=== PATIENT | female | born 1980 | race Caucasian/White ===

== ENCOUNTER 2024-01-26 16:23 | Inpatient (IN) | payer OTHER, SELFPAY ==
[~2024-01-26] VITALS: Ht 162.6 cm; Wt 71.0 kg
[2024-01-26 17:43] LABS: BASO # 0.1 10^3/uL (0.0-0.2); BASO % 0.8 % (0.0-1.0); EOS # 0.1 10^3/uL (0.0-0.5); EOS % 0.3 % (0.0-3.0); HEMOGLOBIN 12.8 g/dl (12.0-15.5); LYMPH # 2.7 10^3/uL (1.5-5.0); LYMPH % 18.5 % (24.0-44.0); MEAN CORPUSCULAR HEMOGLOBIN 28.4 pg (27.0-33.0); MEAN CORPUSCULAR VOLUME 88.9 fl (80.0-96.0); MONO % 6.8 % (2.0-8.0); NEUTROPHILS # 10.6 10^3/uL (1.5-8.5); NEUTROPHILS % 73.4 % (36.0-66.0); PLATELET COUNT, AUTOMATED 286 10^3/uL (150-450); WHITE BLOOD COUNT 14.4 10^3/uL (4.0-10.0)
[2024-01-26 17:53] LABS: ERYTHROCYTE SEDIMENTATION RATE 46 mm/hr (0-20)
[2024-01-26 18:09] LABS: C REACTIVE PROTEIN QUANTITATIV < 0.40 MG/DL (<1.0)
[2024-01-26 18:10] LABS: BLOOD UREA NITROGEN 10 MG/DL (9-23); CALCIUM LEVEL 9.4 MG/DL (8.5-10.1); CARBON DIOXIDE LEVEL 26 MMOL/L (20-31); CHLORIDE LEVEL 107 MMOL/L (98-107); CREATININE FOR GFR 0.61 MG/DL (0.55-1.30); GLOMERULAR FILTRATION RATE > 60.0 (>58); GLUCOSE, FASTING 95 MG/DL (60-100); POTASSIUM SERUM 3.5 MMOL/L (3.5-5.1); SODIUM LEVEL 139 MMOL/L (136-145)
[2024-01-26 18:18] LABS: HCG, SERUM QUALITATIVE NEGATIVE (NEGATIVE)
[2024-01-26] MEDS: METOCLOPRAMIDE INJ 10MG/2ML VIAL IV ONE (19:01)
[2024-01-26] MEDS: KETOROLAC 30 MG/ML 1ML VIAL IV ONE (19:01)
[2024-01-26] MEDS: diphenhydrAMINE 50MG/ML VIAL IV ONE (19:01)
[2024-01-26] MEDS: NS 1,000 ML IV ONE ×2 (19:01→23:05)
[2024-01-26 20:40] LABS: BARBITURATES URINE NEGATIVE (NEGATIVE); BENZODIAZEPINES URINE NEGATIVE (NEGATIVE); CANNABINOIDS URINE NEGATIVE (NEGATIVE); COCAINE METABOLITE URINE NEGATIVE (NEGATIVE); METHADONE URINE NEGATIVE (NEGATIVE); OPIATES URINE NEGATIVE (NEGATIVE); PHENCYCLIDINE URINE NEGATIVE (NEGATIVE)
[2024-01-26 20:46] LABS: AMPHETAMINES LEVEL URINE POSITIVE (NEGATIVE)
[2024-01-26 21:07] LABS: ETHYL ALCOHOL (ETHANOL) 0.006 % (0.000-0.010)
[2024-01-26 21:09] LABS: SALICYLATE LEVEL < 3.0 MG/DL (<30)
[2024-01-26 21:21] LABS: INR 1.14; PARTIAL THROMBOPLASTIN TIME 27.5 SECONDS (24.8-34.2); PROTHROMBIN TIME 14.3 SECONDS (12.5-14.5)
[2024-01-26] MEDS: dexAMETHasone 20MG/5ML VIAL IV STA (22:28)
[2024-01-26] MEDS ORDERED: MOM 30ML SUSPENSION UDC PO PRN (22:40)
[2024-01-26] MEDS ORDERED: VANCOMYCIN HCL IV ONE (22:40)
[2024-01-26] MEDS ORDERED: ACETAMINOPHEN TAB 650MG DOSE (2X325MG) PO PRN (22:40)
[2024-01-26] MEDS ORDERED: FLUID PLACE HOLDER IV ONE (22:40)
[2024-01-26] MEDS: cefTRIAXone SOD 2 GM in D5W MINI-BAG PLUS 50 ML IV SCH (23:02)
[2024-01-26 23:18] LABS: CSF TUBE# TP TUBE 2; TOTAL PROTEIN,CSF 99.7 MG/DL (15-45)
[2024-01-26 23:19] LABS: COLOR, CSF COLORLESS (COLORLESS); CSF TUBE# CELL CNT TUBE 1
[2024-01-26 23:20] LABS: APPEARANCE, CSF CLEAR (CLEAR)
[2024-01-26 23:21] LABS: CSF TUBE# GLU TUBE 2
[2024-01-27 00:15] LABS: PROCALCITONIN <0.04 ng/ml
[2024-01-27] MEDS ORDERED: VANCOMYCIN HCL 750 MG, VIAL MATE ADAPTER 1 EACH in D5W 250 ML IV ONE ×2 (01:00)
[2024-01-27 01:22] VITALS: BP 160/93; TEMP 98.1; O2SAT 100
[2024-01-27] MEDS: NS IV SCH (01:53)
[2024-01-27] MEDS: ACYCLOVIR IV SCH (01:53)
[2024-01-27] MEDS ORDERED: HOME MED LIST COMPLETE! XX SCH (02:15)
[2024-01-27 04:28] VITALS: BP 134/77; TEMP 97.8; O2SAT 98
[2024-01-27] MEDS ORDERED: dexAMETHasone 20MG/5ML VIAL IV SCH (05:00)
[2024-01-27 08:00] VITALS: BP 132/78; TEMP 97.9; O2SAT 99
[2024-01-27] MEDS ORDERED: VALT1TAB PO (08:26)
[2024-01-27] MEDS: ENOXAPARIN 40MG/0.4ML SYRINGE (J1650 PER 10MG) SC SCH (08:36)
[2024-01-27 12:00] VITALS: BP 132/78; TEMP 98.1; O2SAT 100
== END 2024-01-27 12:32 | disposition left against medical advice (07) | DRG 51 ==
LOC: M ED 16:23 → M ED INP 22:36 → M MSPAV 01-27 01:22
PROVIDERS: ADMIT Internal Medicine; ATTEND Internal Medicine
PROC: 009U3ZX Drainage of Spinal Canal, Percutaneous Approach, Diagnostic (ICD-10-PCS; principal; 2024-01-26)
DX: B00.3 Herpesviral meningitis (principal); F32.A Depression, unspecified; Z11.52 Encounter for screening for COVID-19; G43.909 Migraine, unspecified, not intractable, without status migrainosus; B18.2 Chronic viral hepatitis C

== ENCOUNTER → 2024-02-17 | Outpatient (CLI) | payer OTHER ==
[~2024-02-17] MED LIST: VALT1TAB PO
[2024-02-17 15:21] LABS: BASO # 0.1 10^3/uL (0.0-0.2); EOS # 0.9 10^3/uL (0.0-0.5); EOS % 6.6 % (0.0-3.0); HEMATOCRIT 38.7 % (36.0-47.0); HEMOGLOBIN 12.3 g/dl (12.0-15.5); LYMPH # 4.3 10^3/uL (1.5-5.0); LYMPH % 32.5 % (24.0-44.0); MEAN CORPUSCULAR HEMOGLOBIN 28.5 pg (27.0-33.0); MEAN CORPUSCULAR HGB CONC 31.8 g/dl (32.0-36.5); MEAN CORPUSCULAR VOLUME 89.8 fl (80.0-96.0); MONO # 0.9 10^3/uL (0.0-0.8); MONO % 6.5 % (2.0-8.0); NEUTROPHILS # 7.1 10^3/uL (1.5-8.5); NEUTROPHILS % 53.1 % (36.0-66.0); PLATELET COUNT, AUTOMATED 280 10^3/uL (150-450); RED BLOOD COUNT 4.31 10^6/uL (4.00-5.40); WHITE BLOOD COUNT 13.3 10^3/uL (4.0-10.0)
[2024-02-17 15:43] LABS: ALKALINE PHOSPHATASE 84 U/L (46-116); ALT/SGPT 41 U/L (7.0-40); AST/SGOT 34 U/L (<34); BILIRUBIN,TOTAL 0.7 MG/DL (0.3-1.2); BLOOD UREA NITROGEN 11 MG/DL (9-23); CALCIUM LEVEL 9.4 MG/DL (8.5-10.1); CARBON DIOXIDE LEVEL 27 MMOL/L (20-31); CHLORIDE LEVEL 102 MMOL/L (98-107); GLOMERULAR FILTRATION RATE > 60.0 (>58); GLUCOSE, FASTING 67 MG/DL (60-100); POTASSIUM SERUM 3.4 MMOL/L (3.5-5.1); SODIUM LEVEL 136 MMOL/L (136-145); TOTAL PROTEIN 7.1 G/DL (5.7-8.2)
[2024-02-17 15:51] LABS: HEPATITIS B SURFACE ANTIBODY POSITIVE (POSITIVE)
[2024-02-17 16:16] LABS: HIV 1&2 SCREEN NEGATIVE (NEGATIVE)
== END ==
LOC: M PLALAB 12:51 → M LAB 12:51
PROVIDERS: ATTEND Internal Medicine Infectious Disease
DX: B00.3 Herpesviral meningitis (principal); B18.2 Chronic viral hepatitis C